=== PATIENT | female | born 1985 | race African-American/Black ===

== ENCOUNTER 2024-01-07 16:07 | Emergency (ER) | payer OTHER | END 2024-01-07 16:59 | disposition home or self-care (01) | LOC: CSHERS 16:07 | DX: S00.81XA Abrasion of other part of head, initial encounter (principal); J45.909 Unspecified asthma, uncomplicated; Z79.899 Other long term (current) drug therapy; W22.8XXA Striking against or struck by other objects, initial encounter | CPT/HCPCS: 70450 ==